=== PATIENT | female | born 1955 | race Caucasian/White ===

== ENCOUNTER 2018-12-26 08:03 | Day surgery (SDC) | payer MEDICARE, BC ==
[2018-12-26] VITALS (267 sets, daily range): BP systolic 149–185; BP diastolic 86–109; PULSE 71–87; TEMP 97.7–98.2; O2SAT 88–100
[~2018-12-26] VITALS: Ht 165.1 cm; Wt 68.3 kg
[2018-12-26 09:08] LABS: HEMATOCRIT 40.6 % (37.0-47.0); HEMOGLOBIN 13.7 g/dl (12.5-16.0); MEAN CELL VOLUME 91 fl (80.0-100.0); MEAN CORPUSCULAR HEMOGLOBIN 31 pg (27.0-31.0); MEAN CORPUSCULAR HGB CONC 34 g/dl (33.0-37.0); MEAN PLATELET VOLUME 9.9 fl (7.4-10.4); PLATELET COUNT 354 K/mm3 (130-400); RED BLOOD COUNT 4.48 M/mm3 (4.10-5.30)
[2018-12-26 09:12] LABS: INR 1.1 (0.8-3.0); PROTHROMBIN TIME 12.8 SECONDS (9.7-12.8)
[2018-12-26] MEDS ORDERED: AMBIEN 5MG TABLE5 MG PO (09:17)
[2018-12-26 09:18] LABS: CALCIUM 10.1 mg/dL (8.4-10.2); CREATININE, serum 0.6 mg/dL (0.52-1.25); POTASSIUM 3.6 mmol/L (3.4-5.0)
[2018-12-26] MEDS ORDERED: MELATONIN5 M1 SL (09:18)
[2018-12-26] MEDS ORDERED: LIPITOR 80MG80 MG PO (09:18)
[2018-12-26] MEDS ORDERED: EFFEXOR XR75 MG/CAP PO (09:19)
[2018-12-26] MEDS ORDERED: ZIAC 2.5/6.25MG1 TAB PO (09:20)
[2018-12-26] MEDS ORDERED: 00186-0370-20 IH (09:20)
[2018-12-26] MEDS ORDERED: NEXIUM 20MG20 MG PO (09:21)
[2018-12-26] MEDS ORDERED: ASPIRIN E.C. 8181 MG PO (09:22)
[2018-12-26] MEDS ORDERED: MULTI VITAMINS1 TAB PO (09:22)
[2018-12-26] MEDS ORDERED: VITAMINC1000TA PO (09:23)
[2018-12-26] MEDS ORDERED: NITROSTAT0.4 MG/TAB SL (09:25)
--- NOTE | 2018-12-26 10:44 | NUR ---
Pt premedicated d/t iodine allergy in [facility] by LUCRETIA Hightower. SpO2=88% on room air in EU, MD Thad aware
--- NOTE | 2018-12-26 12:02 | NUR ---
Patient arrives to ICU from pathology laboratory aide by bed, accompanied by LUCRETIA Ramos. Patient denies pain or shortness of breath at this time. Patient is lying flat. Right groin site is soft and dry, no signs of bleeding. Pedal pulses palpable 2+. Discussed with patient signs and symptoms of groin bleed. Will monitor closely.
--- NOTE | 2018-12-26 14:00 | NUR ---
Patient resting in bed. Right groin site remains intact, soft and without signs of bleeding. Some ecchymosis noted around bandage, but no active bleed or firmness noted. Patient having some discomfort in right groin area. Will continue to monitor.
--- NOTE | 2018-12-26 16:00 | NUR ---
Patient resting in bed, still on flat time. Right groin site remains soft and without signs of bleeding. Patient reporting some headache. See MAR for intervention.
--- NOTE | 2018-12-26 18:00 | NUR ---
Patient flat time over. Right groin site remains soft and without signs of bleeding. Patient assisted into a sitting position, and then ambulates to bathroom with assistance from this nurse. No difficulty ambulating noted. Patient denies any chest pain or shortness of breath. Patient voids, returns to bed. Right groin site remains soft, no signs of bleeding. Will continue to monitor.
--- NOTE | 2018-12-26 19:10 | NUR ---
Bedside report given to LUCRETIA Reece.
--- NOTE | 2018-12-26 20:00 | NUR ---
Shift assessment complete at this time. Plan of care reviewed at bedside with patient. Additional time taken to address any other needs or concerns. Vitals stable. Denies pain or any other discomfort. R groin cath site with old scant drainage, slight bruising, and no hematoma. Will continue to monitor.
[2018-12-27] VITALS (224 sets, daily range): BP systolic 123–141; BP diastolic 64–87; PULSE 67–77; TEMP 97.7–97.9; O2SAT 91–98
--- NOTE | 2018-12-27 | NUR ---
Pt sleeping comfortably in bed. Denies pain or any other discomfort. Vitals stable. R groin cath site with no new drainage, bruising, and no hematoma. Will continue to monitor.
--- NOTE | 2018-12-27 04:00 | NUR ---
Pt sleeping comfortably in bed. Denies pain or any other discomfort. Vitals stable at this time. R groin cath site with no new drainage, bruising, and no hematoma. Will continue to monitor.
[2018-12-27 05:36] LABS: BASO % 0.1 % (0.0-2.0); GRAN # 13.7 (1.4-6.5); LYMPH # 1.2 (1.2-3.4); LYMPH % 7.2 % (20.0-51.0); MEAN CELL VOLUME 92 fl (80.0-100.0); MEAN CORPUSCULAR HEMOGLOBIN 31 pg (27.0-31.0); MEAN CORPUSCULAR HGB CONC 33 g/dl (33.0-37.0); MEAN PLATELET VOLUME 10.1 fl (7.4-10.4); MONO # 1.3 (0.1-0.6); MONO % 8.2 % (1.7-9.3); PLATELET COUNT 369 K/mm3 (130-400); RED BLOOD COUNT 3.92 M/mm3 (4.10-5.30); REDCELL DISTRIBUTION WIDTH-CV 13.4 % (11.5-14.5)
[2018-12-27 05:37] LABS: HEMATOCRIT 36.2 % (37.0-47.0)
[2018-12-27 05:48] LABS: CALCIUM 9.5 mg/dL (8.4-10.2); CREATININE, serum 0.72 mg/dL (0.52-1.25)
--- NOTE | 2018-12-27 07:15 | NUR ---
Received bedside report from LUCRETIA Reece. PAtient was awake sitting on the edge of the bed waiting on breakfast. Medications and orders varified.
--- NOTE | 2018-12-27 07:29 | NUR ---
Bedside report given to Misael Tanner.
--- NOTE | 2018-12-27 09:44 | NUR ---
Initial visit; Patient thanked [employer] for stopping and wishing her well and God's blessings.
[2018-12-27] MEDS ORDERED: BRILINTA90 MG PO (10:03)
[2018-12-27] MEDS ORDERED: ZIAC 10/6.25M1 UDTAB PO (10:03)
[2018-12-27] MEDS ORDERED: NORVASC 10MG10 MG PO (10:03)
--- NOTE | 2018-12-27 10:39 | NUR ---
SW met with patient and daughter. Patient lives independently at home by herself but her two daughters live close by. Patient's PCP is Dr Soriano and she obtains prescriptions from [facility]. Patient does not use any home health services but she does use oxygen, provided by [employer], at night. Patient's nurse reports is planning on discharging today. SW does not anticipate any discharge needs.
[2018-12-27] MEDS ORDERED: BACTRIM DS 8001 TAB PO (11:57)
--- NOTE | 2018-12-27 12:30 | NUR ---
DISCHARGE INSTRUCTIONS GIVEN TO PATIENT AND DAUGHTER. PATIENT UNABLE TO VOID FOR UA AT THIS TIME. SHE STATES SHE WILL FOLLOW UP WITH HER PCP EITHER TODAY OR TOMORROW ABOUT GETTING A UA DONE FOR CONCERNS ABOUT UTI. PATIENT WHEELED OUT TO CAR.
== END 2018-12-27 12:30 | disposition home or self-care (01) ==
LOC: COL.CAR 08:03 → ICU 11:19 → COL.CAR 12-27 12:30
PROVIDERS: Internal Medicine Cardiovascular Disease; Nurse Practitioner
DX: I25.10 Atherosclerotic heart disease of native coronary artery without angina pectoris (principal); R94.39 Abnormal result of other cardiovascular function study; I10 Essential (primary) hypertension; E78.5 Hyperlipidemia, unspecified; F32.9 Major depressive disorder, single episode, unspecified; G47.00 Insomnia, unspecified; J44.9 Chronic obstructive pulmonary disease, unspecified; Z88.3 Allergy status to other anti-infective agents; Z79.82 Long term (current) use of aspirin; Z87.891 Personal history of nicotine dependence; Z82.3 Family history of stroke; Z82.5 Family history of asthma and other chronic lower respiratory diseases
CPT/HCPCS: OP; C1760; C1769; C1874; C1887; C1894; C9600; J0583; J1200; J1644; J2250; J2930; J3010; Q9967